=== PATIENT | male | born 1995 | race African-American/Black ===

== ENCOUNTER 2021-08-25 01:47 | Emergency (ER) ==
[2021-08-25] MEDS ORDERED: Ondansetron PF 4 MG/2 ML Vial ONE ×2 (03:11→05:24)
[2021-08-25] MEDS ORDERED: Acetaminophen 500 MG TAB ONE (03:11)
[2021-08-25 03:31] LABS: Hemoglobin 15.6 g/dL (14.0-18.0); Mean Corpuscular HGB CONC 33.8 g/dL (32.0-36.0); Mean Corpuscular Hemoglobin 31.2 pg (27.0-31.0); Mean Corpuscular Volume 92.2 fL (78.0-98.0); Mean Platelet Volume 7.7 fL (7.4-10.4); Platelet Count 158 thou/uL (130-400); RBC Distribution Width 11.2 % (11.5-14.5); Red Blood Cell (RBC) Count 4.99 mill/uL (4.70-6.10); White Blood Cell (WBC) Count 2.7 thou/uL (4.8-10.8)
[2021-08-25 03:44] LABS: ALT (SGPT) 50 U/L (8-55); AST (SGOT) 46 U/L (5-34); Albumin 3.7 g/dL (3.5-5.0); Alkaline Phosphatase 78 U/L (40-110); Anion Gap 13 mmol/L (10-20); BUN (Urea Nitrogen) 9 mg/dL (8.9-20.6); Bilirubin, Total 0.6 mg/dL (0.2-1.2); Calc. Creatinine Clearance 0 mL/min (70-130); Calcium 8.6 mg/dL (7.8-10.44); Carbon Dioxide 27 mmol/L (22-29); Chloride 101 mmol/L (98-107); Globulin 2.7 g/dL (2.4-3.5); Glucose 107 mg/dL (70-105); Lipase 40 U/L (8-78); Protein, Total 6.4 g/dL (6.0-8.3); Sodium 137 mmol/L (136-145)
[2021-08-25 03:50] LABS: Band 39 % (5-11); Eosinophils 1 % (0-10); Lymphocytes 14 % (21-51); MDiff Complete? YES; Monocytes 12 % (0-10); Neutrophil 34 % (42-75)
[2021-08-25 05:49] LABS: Bilirubin Negative (Negative); Blood, Urine Negative (Negative); Glucose, Urine (Dipstick) Normal (Negative); Ketone, Urine 40 mg/dL (Negative); Protein, Urine (Dipstick) 10 mg/dL (Neg-Trace); pH, Urine 6.5 (5.0-9.0)
[2021-08-25 06:00] LABS: Clarity Clear (Clear); Leukocyte Negative Leu/uL (Negative); Nitrite Negative (Negative); Specific Gravity, Urine 1.015 (1.002-1.036)
[2021-08-25] MEDS ORDERED: Iopamidol-370 76% 500 ML 1 ML ONE (09:29)
== END 2021-08-25 06:27 | disposition home or self-care (01) ==
LOC: EDBD → ERS 01:47
DX: A09 Infectious gastroenteritis and colitis, unspecified (principal); Z79.899 Other long term (current) drug therapy
CPT/HCPCS: 36415; 74177; 80053; 81003; 83690; 85025; 87086; 96374; 96376; J2405

== ENCOUNTER 2021-08-28 05:22 | Inpatient (IN) | payer BC ==
[2021-08-28 06:21] LABS: Hemoglobin 14.2 g/dL (14.0-18.0); Mean Corpuscular HGB CONC 34.8 g/dL (32.0-36.0); Mean Corpuscular Hemoglobin 31.2 pg (27.0-31.0); Mean Corpuscular Volume 89.5 fL (78.0-98.0); Mean Platelet Volume 7.7 fL (7.4-10.4); Platelet Count 157 thou/uL (130-400); RBC Distribution Width 11.4 % (11.5-14.5); Red Blood Cell (RBC) Count 4.54 mill/uL (4.70-6.10); White Blood Cell (WBC) Count 5.7 thou/uL (4.8-10.8)
[2021-08-28 06:35] LABS: ALT (SGPT) 470 U/L (8-55); AST (SGOT) 402 U/L (5-34); Albumin 3.2 g/dL (3.5-5.0); Alkaline Phosphatase 114 U/L (40-110); Anion Gap 14 mmol/L (10-20); BUN (Urea Nitrogen) 12 mg/dL (8.9-20.6); Bilirubin, Total 1.1 mg/dL (0.2-1.2); Calc. Creatinine Clearance 0 mL/min (70-130); Calcium 8.2 mg/dL (7.8-10.44); Carbon Dioxide 22 mmol/L (22-29); Chloride 101 mmol/L (98-107); Globulin 2.7 g/dL (2.4-3.5); Glucose 119 mg/dL (70-105); Potassium 3.9 mmol/L (3.5-5.1); Protein, Total 5.9 g/dL (6.0-8.3); Sodium 133 mmol/L (136-145)
[2021-08-28 06:53] LABS: Band 39 % (5-11); Lymphocytes 5 % (21-51); MDiff Complete? YES; Monocytes 3 % (0-10); Neutrophil 53 % (42-75)
[2021-08-28 07:14] LABS: HIV (1/2) Antibody/Antigen Non-Reactive (NonReactive); HIV 1/2 INDEX 0.12 S/CO (<1.00)
[2021-08-28 08:02] LABS: Bacteria/HPF None Seen HPF (None Seen); Bilirubin Negative (Negative); Blood, Urine Negative (Negative); Clarity Clear (Clear); Glucose, Urine (Dipstick) Normal (Negative); Ketone, Urine Negative (Negative); Leukocyte Negative Leu/uL (Negative); Nitrite Negative (Negative); Protein, Urine (Dipstick) 30 mg/dL (Neg-Trace); RBC/HPF 0-3 HPF (0-3); Specific Gravity, Urine 1.018 (1.002-1.036); Squamous Epithelial None Seen HPF (0-3); Urobilinogen 3 mg/dL (Less than 2); pH, Urine 6.5 (5.0-9.0)
[2021-08-28] MEDS ORDERED: Ondansetron ODT 4 MG TAB ONE (09:23)
[2021-08-28] MEDS ORDERED: Calcium Carbonate 500 MG ChewTAB PO PRN (10:04)
[2021-08-28] MEDS ORDERED: Senokot S 8.6-50 MG TAB PO PRN (10:04)
[2021-08-28] MEDS ORDERED: Loperamide HCl 2 MG CAP PO PRN (10:04)
[2021-08-28 10:11] LABS: ALT (SGPT) 479 U/L (8-55); AST (SGOT) 409 U/L (5-34); Albumin 3.2 g/dL (3.5-5.0); Alkaline Phosphatase 119 U/L (40-110); Bilirubin, Direct 0.6 mg/dL (0.1-0.3); Bilirubin, Total 1.1 mg/dL (0.2-1.2); Protein, Total 5.9 g/dL (6.0-8.3)
[2021-08-28 10:24] LABS: Hemoglobin A1c 4.8 % (4.0-6.0)
[2021-08-28] MEDS: Sodium Chloride 0.9% 1,000 ML IV SCH ×3 (10:30→22:18)
[2021-08-28 10:36] LABS: Syphilis Antibody Nonreactive (Nonreactive); Syphilis Antibody Index 0.06 S/CO (<1.00 Non-Reactive)
[2021-08-28] MEDS ORDERED: Promethazine 25 MG TAB ONE (10:36)
[2021-08-28] MEDS ORDERED: Promethazine 25 MG TAB PO SCH (10:45)
[2021-08-28 10:57] LABS: HBCM Index 0.05 S/CO (0-0.79); HBSAg Index 0.25 S/CO (0-0.99); Hep A IgM AB Non-Reactive (NonReactive); Hep A IgM S/CO 0.15 S/CO (0-0.79); Hep B Surf Ag Non-Reactive S/CO (NonReactive); Hep C IgG Ab Non-Reactive (NonReactive); Hep C Index 0.09 S/CO (0-0.79); Hepatitis B Core IgM Abs Non-Reactive (NonReactive)
[2021-08-28] MEDS ORDERED: Piperacillin/Tazobactam 3.375 GM VIAL ONE (11:20)
[2021-08-28] MEDS: Piperacillin/Tazobactam 3.375 GM in Sodium Chloride 0.9% 100 ML IVPB SCH ×4 (11:26→23:19)
[2021-08-28 13:27] LABS: ANA Symphony (Qualitative) Negative (Negative); ANA Symphony (Quantitative) 0.1 Ratio (< 0.7 Negative); dsDNA IgG Antibody 0.8 IU/mL (<10 Negative)
[2021-08-28] MEDS ORDERED: Acetaminophen 325 MG TAB ONE (14:24)
[2021-08-28] MEDS: Acetaminophen 325 MG TAB PO PRN ×2 (14:26→19:35)
[2021-08-28 16:49] VITALS: BMI 19.5
[2021-08-28] MEDS ORDERED: Ibuprofen 100 MG/5 ML UDCUP PO PRN (17:17)
[2021-08-28] MEDS: Ondansetron PF 4 MG/2 ML Vial IVP PRN (17:25)
[2021-08-28 17:43] LABS: MONO NEGATIVE CONTROL ZONE White (Negative) (White); MONO POSITIVE CONTROL Pink Line (Positive) (PINK/RED); Mononucleosis NEGATIVE (NEGATIVE)
[2021-08-28 18:27] LABS: SARS-CoV-2 NAA Rapid Test Not Detected (NotDetected)
[2021-08-28] MEDS: Ibuprofen 200 MG TAB PO PRN ×2 (21:30→23:52)
[2021-08-29] MEDS: Sodium Chloride 0.9% 1,000 ML IV SCH (04:54)
[2021-08-29] MEDS: Piperacillin/Tazobactam 3.375 GM in Sodium Chloride 0.9% 100 ML IVPB SCH ×4 (05:04→23:39)
[2021-08-29] MEDS: Ondansetron PF 4 MG/2 ML Vial IVP PRN ×2 (05:09→11:07)
[2021-08-29] MEDS: Acetaminophen 325 MG TAB PO PRN ×3 (07:21→22:15)
[2021-08-29 08:37] LABS: ALT (SGPT) 398 U/L (8-55); AST (SGOT) 337 U/L (5-34); Albumin 2.7 g/dL (3.5-5.0); Alkaline Phosphatase 110 U/L (40-110); Anion Gap 11 mmol/L (10-20); BUN (Urea Nitrogen) 13 mg/dL (8.9-20.6); Bilirubin, Total 1.3 mg/dL (0.2-1.2); Calc. Creatinine Clearance 89 mL/min (70-130); Calcium 7.9 mg/dL (7.8-10.44); Carbon Dioxide 28 mmol/L (22-29); Chloride 101 mmol/L (98-107); Globulin 2.4 g/dL (2.4-3.5); Glucose 95 mg/dL (70-105); Potassium 4.1 mmol/L (3.5-5.1); Protein, Total 5.1 g/dL (6.0-8.3); Sodium 136 mmol/L (136-145)
[2021-08-29] MEDS ORDERED: Iopamidol-370 76% 500 ML 1 ML ONE (09:53)
[2021-08-29 09:54] LABS: Band 23 % (5-11); Hemoglobin 13.1 g/dL (14.0-18.0); Lymphocytes 16 % (21-51); MDiff Complete? YES; Mean Corpuscular HGB CONC 33.5 g/dL (32.0-36.0); Mean Corpuscular Hemoglobin 30.2 pg (27.0-31.0); Mean Corpuscular Volume 90.2 fL (78.0-98.0); Mean Platelet Volume 8.1 fL (7.4-10.4); Monocytes 10 % (0-10); Neutrophil 43 % (42-75); Platelet Count 157 thou/uL (130-400); Platelet Morphology Comment Appears Adequate; RBC Distribution Width 11.6 % (11.5-14.5); RBC Morphology Normal; Reactive Lymphocytes 8 % (0-10); Red Blood Cell (RBC) Count 4.34 mill/uL (4.70-6.10); White Blood Cell (WBC) Count 6.3 thou/uL (4.8-10.8)
[2021-08-29] MEDS: Ibuprofen 200 MG TAB PO PRN ×2 (11:08→20:01)
[2021-08-29] MEDS: Doxycycline 100 MG CAP PO SCH (20:00)
[2021-08-30] MEDS: Ibuprofen 200 MG TAB PO PRN ×2 (03:05→16:34)
[2021-08-30] MEDS: Piperacillin/Tazobactam 3.375 GM in Sodium Chloride 0.9% 100 ML IVPB SCH ×3 (05:17→18:48)
[2021-08-30] MEDS: Acetaminophen 325 MG TAB PO PRN ×2 (05:17→14:10)
[2021-08-30] MEDS: Doxycycline 100 MG CAP PO SCH ×2 (08:14→20:50)
[2021-08-30 11:16] LABS: #Lymphocytes 1.8 thou/uL (1.20-3.40); #Monocytes 0.8 thou/uL (0.11-0.59); #Neutrophils 6.4 thou/uL (1.40-6.50); %Basophils 0.5 % (0.0-1.0); %Monocytes 8.5 % (0.0-10.0); %Neutrophils 71.1 % (42.0-75.0); Hemoglobin 12.8 g/dL (14.0-18.0); Mean Corpuscular HGB CONC 33.6 g/dL (32.0-36.0); Mean Corpuscular Hemoglobin 30.7 pg (27.0-31.0); Mean Corpuscular Volume 91.3 fL (78.0-98.0); Mean Platelet Volume 7.9 fL (7.4-10.4); Platelet Count 147 thou/uL (130-400); RBC Distribution Width 11.9 % (11.5-14.5); Red Blood Cell (RBC) Count 4.19 mill/uL (4.70-6.10)
[2021-08-30 11:33] LABS: ALT (SGPT) 361 U/L (8-55); AST (SGOT) 277 U/L (5-34); Albumin 2.9 g/dL (3.5-5.0); Alkaline Phosphatase 119 U/L (40-110); Anion Gap 11 mmol/L (10-20); BUN (Urea Nitrogen) 14 mg/dL (8.9-20.6); Bilirubin, Total 0.9 mg/dL (0.2-1.2); Calc. Creatinine Clearance 91 mL/min (70-130); Calcium 8.2 mg/dL (7.8-10.44); Carbon Dioxide 28 mmol/L (22-29); Chloride 101 mmol/L (98-107); Globulin 2.6 g/dL (2.4-3.5); Glucose 87 mg/dL (70-105); Potassium 3.6 mmol/L (3.5-5.1); Protein, Total 5.5 g/dL (6.0-8.3); Sodium 136 mmol/L (136-145)
[2021-08-30] MEDS: Ondansetron PF 4 MG/2 ML Vial IVP PRN (20:53)
[2021-08-30] MEDS: Promethazine HCl 6.25 MG/5 ML Syrup PO PRN (23:30)
[2021-08-31] MEDS: Piperacillin/Tazobactam 3.375 GM in Sodium Chloride 0.9% 100 ML IVPB SCH ×4 (00:35→18:20)
[2021-08-31] MEDS: Acetaminophen 325 MG TAB PO PRN ×3 (00:41→17:09)
[2021-08-31] MEDS: Ibuprofen 200 MG TAB PO PRN (01:54)
[2021-08-31] MEDS: Promethazine HCl 6.25 MG/5 ML Syrup PO PRN ×2 (06:17→11:18)
[2021-08-31 08:16] LABS: #Eosinphils 0.1 thou/uL (0.0-0.7); #Lymphocytes 1.9 thou/uL (1.20-3.40); #Monocytes 0.9 thou/uL (0.11-0.59); #Neutrophils 4.3 thou/uL (1.40-6.50); %Basophils 0.5 % (0.0-1.0); %Eosinophils 0.8 % (0.0-10.0); %Lymphocytes 27.1 % (21.0-51.0); %Monocytes 11.9 % (0.0-10.0); %Neutrophils 59.7 % (42.0-75.0); Hemoglobin 11.8 g/dL (14.0-18.0); Mean Corpuscular Hemoglobin 30.6 pg (27.0-31.0); Mean Corpuscular Volume 90.1 fL (78.0-98.0); Mean Platelet Volume 7.9 fL (7.4-10.4); Platelet Count 176 thou/uL (130-400); RBC Distribution Width 11.8 % (11.5-14.5); Red Blood Cell (RBC) Count 3.86 mill/uL (4.70-6.10); White Blood Cell (WBC) Count 7.1 thou/uL (4.8-10.8)
[2021-08-31 08:29] LABS: Prothrombin Time 13.6 sec (12.0-14.7)
[2021-08-31] MEDS: Doxycycline 100 MG CAP PO SCH ×2 (08:29→20:19)
[2021-08-31 08:39] LABS: ALT (SGPT) 263 U/L (8-55); AST (SGOT) 161 U/L (5-34); Albumin 2.6 g/dL (3.5-5.0); Alkaline Phosphatase 116 U/L (40-110); Anion Gap 11 mmol/L (10-20); BUN (Urea Nitrogen) 13 mg/dL (8.9-20.6); Bilirubin, Total 0.7 mg/dL (0.2-1.2); Calc. Creatinine Clearance 110 mL/min (70-130); Calcium 8.1 mg/dL (7.8-10.44); Carbon Dioxide 25 mmol/L (22-29); Chloride 105 mmol/L (98-107); Globulin 2.6 g/dL (2.4-3.5); Glucose 102 mg/dL (70-105); Potassium 3.8 mmol/L (3.5-5.1); Protein, Total 5.2 g/dL (6.0-8.3); Sodium 137 mmol/L (136-145)
[2021-08-31] MEDS ORDERED: GoLYTELY 4,000 ml Bottle PO SCH (10:30)
[2021-09-01] MEDS: Piperacillin/Tazobactam 3.375 GM in Sodium Chloride 0.9% 100 ML IVPB SCH ×3 (00:05→12:39)
[2021-09-01] MEDS: Acetaminophen 325 MG TAB PO PRN (04:04)
[2021-09-01] MEDS ORDERED: Lidocaine 1% PF 5 ML VIAL ONE (08:11)
[2021-09-01] MEDS ORDERED: PROPOFOL 200 MG/20 ML VIAL ONE (08:11)
[2021-09-01 08:30] LABS: ALT (SGPT) 226 U/L (8-55); AST (SGOT) 122 U/L (5-34); Albumin 2.7 g/dL (3.5-5.0); Alkaline Phosphatase 113 U/L (40-110); Anion Gap 12 mmol/L (10-20); BUN (Urea Nitrogen) 10 mg/dL (8.9-20.6); Bilirubin, Total 0.7 mg/dL (0.2-1.2); Calc. Creatinine Clearance 115 mL/min (70-130); Calcium 8.5 mg/dL (7.8-10.44); Carbon Dioxide 24 mmol/L (22-29); Chloride 104 mmol/L (98-107); Globulin 3.2 g/dL (2.4-3.5); Glucose 86 mg/dL (70-105); Potassium 3.9 mmol/L (3.5-5.1); Protein, Total 5.9 g/dL (6.0-8.3); Sodium 136 mmol/L (136-145)
[2021-09-01] MEDS ORDERED: Ondansetron HCl/PF 4 MG/2 ML Vial IVP PRN (08:57)
[2021-09-01] MEDS ORDERED: Promethazine HCl 25 MG/ML VIAL IVPB PRN (08:57)
[2021-09-01] MEDS ORDERED: Promethazine HCl 25 MG/ML VIAL IM PRN (08:57)
[2021-09-01] MEDS: Doxycycline 100 MG CAP PO SCH ×2 (09:33→19:52)
[2021-09-01] MEDS: Promethazine HCl 6.25 MG/5 ML Syrup PO PRN (11:34)
[2021-09-01 12:37] LABS: Lyme IgG/IgM AB <0.91 ISR (0.00-0.90)
[2021-09-01 17:36] LABS: EliA Vaculitis New Method **** NEW METHOD ****; Mitochondrial Ab 0.7 U/mL (<4 Negative)
[2021-09-01] MEDS: Ondansetron PF 4 MG/2 ML Vial IVP PRN (19:51)
[2021-09-02 07:24] LABS: Ref Lab Test Ordered RICKETTSIA IGG/IGM; Reference Lab Name LABCORP
[2021-09-02 07:54] LABS: ALT (SGPT) 224 U/L (8-55); AST (SGOT) 124 U/L (5-34); Alkaline Phosphatase 126 U/L (40-110); Anion Gap 11 mmol/L (10-20); BUN (Urea Nitrogen) 11 mg/dL (8.9-20.6); Bilirubin, Total 0.6 mg/dL (0.2-1.2); Calc. Creatinine Clearance 113 mL/min (70-130); Calcium 8.5 mg/dL (7.8-10.44); Carbon Dioxide 25 mmol/L (22-29); Chloride 106 mmol/L (98-107); Globulin 3.2 g/dL (2.4-3.5); Glucose 97 mg/dL (70-105); Potassium 4.5 mmol/L (3.5-5.1); Protein, Total 6.2 g/dL (6.0-8.3); Sodium 137 mmol/L (136-145)
[2021-09-02] MEDS: Doxycycline 100 MG CAP PO SCH ×2 (08:31→21:52)
[2021-09-03 00:08] LABS: RMSF IgG (EIA) Negative (Negative); RMSF IgM 0.82 index (0.00-0.89)
[2021-09-03 07:33] VITALS: BP 108/65; TEMP 98.1
[2021-09-03] MEDS: Doxycycline 100 MG CAP PO SCH (08:16)
[2021-09-03 08:36] LABS: ALT (SGPT) 227 U/L (8-55); AST (SGOT) 122 U/L (5-34); Albumin 3.2 g/dL (3.5-5.0); Alkaline Phosphatase 130 U/L (40-110); Anion Gap 11 mmol/L (10-20); BUN (Urea Nitrogen) 15 mg/dL (8.9-20.6); Bilirubin, Total 0.6 mg/dL (0.2-1.2); Calc. Creatinine Clearance 113 mL/min (70-130); Carbon Dioxide 24 mmol/L (22-29); Chloride 106 mmol/L (98-107); Globulin 3.5 g/dL (2.4-3.5); Glucose 92 mg/dL (70-105); Potassium 4.7 mmol/L (3.5-5.1); Protein, Total 6.7 g/dL (6.0-8.3); Sodium 136 mmol/L (136-145)
[2021-09-03 16:15] LABS: EBV VCA IgM <36.0 U/mL (0.0-35.9); Nuclear AG IgG (EBNA) AB <18.0 U/mL (0.0-17.9)
[2021-09-04 04:12] LABS: CMV IgG AB Less than 0.60 U/mL (0.00-0.59)
[2021-09-04 13:40] LABS: Bartonella henselae IgG Negative titer (Neg:<1:320); Bartonella henselae IgM Negative titer (Neg:<1:100); Bartonella quintana IgG Negative titer (Neg:<1:320); Bartonella quintana IgM Negative titer (Neg:<1:100)
== END 2021-09-03 12:27 | disposition home or self-care (01) | DRG 872 ==
LOC: ERS 05:22 → ERHOLD 09:36 → T4-A 10:43
PROVIDERS: ADMIT Internal Medicine; ATTEND Internal Medicine
PROC: 0DB98ZX Excision of Duodenum, Via Natural or Artificial Opening Endoscopic, Diagnostic (ICD-10-PCS; principal; 2021-09-01)
PROC: 0DB78ZX Excision of Stomach, Pylorus, Via Natural or Artificial Opening Endoscopic, Diagnostic (ICD-10-PCS; 2021-09-01)
PROC: 0DJD8ZZ Inspection of Lower Intestinal Tract, Via Natural or Artificial Opening Endoscopic (ICD-10-PCS; 2021-09-01)
DX: A41.9 Sepsis, unspecified organism (principal); E87.1 Hypo-osmolality and hyponatremia; Z20.822 Contact with and (suspected) exposure to COVID-19; K29.80 Duodenitis without bleeding; K29.70 Gastritis, unspecified, without bleeding; K63.5 Polyp of colon; R74.01 Elevation of levels of liver transaminase levels; I86.1 Scrotal varices; I08.1 Rheumatic disorders of both mitral and tricuspid valves; K64.4 Residual hemorrhoidal skin tags; K64.8 Other hemorrhoids; Z83.3 Family history of diabetes mellitus; Z82.49 Family history of ischemic heart disease and other diseases of the circulatory system; Z82.0 Family history of epilepsy and other diseases of the nervous system; Z79.899 Other long term (current) drug therapy; Z83.71 Family history of colonic polyps; Z86.010 Personal history of colon polyps
CPT/HCPCS: 36415; 71045; 74177; 76705; 76870; 80053; 80074; 81003; 81015; 82390; 82550; 82728; 83036; 83516; 83605; 83615; 84145; 85025; 85610; 85652; 86038; 86140; 86225; 86308; 86611; 86618; 86644; 86645; 86664; 86665; 86757; 86780; 87040; 87045; 87046; 87081; 87086; 87324; 87328; 87329; 87389; 87427; 87449; 87633; 87798; 88305; 88312; 93306; J2405; J2543; J2704; J3490; J7050; Q0162; Q0169; Q9967; U0002